=== PATIENT | female | born 1980 | race African-American/Black ===

== ENCOUNTER 2018-03-10 09:24 | Emergency (ER) | payer BC ==
[~2018-03-10] VITALS: Ht 157.5 cm; Wt 106.6 kg
[2018-03-10] MEDS ORDERED: KETOROLAC TROMETHAMINE 30 MG/ML VIAL IV STA (09:34)
[2018-03-10] MEDS ORDERED: SODIUM CHLORIDE 0.9% 1000ML 1,000 ML IV SCH (09:45)
[2018-03-10] MEDS ORDERED: DIPHENHYDRAMINE HCL INJ 50 MG/ML VIAL IV ONE (09:45)
[2018-03-10] MEDS ORDERED: METOCLOPRAMIDE HCL 10 MG/2ML VIAL IV ONE (09:45)
[2018-03-10 10:28] LABS: CLARITY,URINE CLEAR (CLEAR); COLOR,URINE YELLOW (YELLOW)
[2018-03-10 10:29] LABS: BILIRUBIN,URINE NEGATIVE (NEGATIVE); KETONES,URINE NEGATIVE (NEGATIVE); LEUKOCYTE ESTERASE ,URINE NEGATIVE (NEGATIVE); NITRITE,URINE NEGATIVE (NEGATIVE); PROTEIN,URINE DIPSTICK TRACE (NEGATIVE); URINE UROBILINOGEN 0.2 mg/dL (0.2 - 1)
[2018-03-10 10:37] LABS: BACTERIA,URINE FEW /HPF; EPITHELIAL CELLS,URINE FEW /LPF; RBC,URINE 0-5 /HPF (0-5); WBC,URINE (MAN) 0-5 /HPF (0-5)
[2018-03-10 10:38] LABS: MUCUS,URINE FEW (RARE); PREGNANCY TEST, URINE NEGATIVE (NEGATIVE)
--- NOTE | 2018-03-10 12:24 | Diagnostic Imaging Report ---
History: Headache; migraine Comparison studies: None Technique: Axial images were obtained from the skull base to the vertex. Coronal and sagittal reconstructions obtained from the axial data. Dose modulation, iterative reconstruction, and/or weight based adjustment of the mA/kV was utilized to reduce the radiation dose to as low as reasonably achievable. Findings: Scalp/skull: No abnormalities. No fractures, blastic or lytic lesions. Extra-axial spaces: No masses. No fluid collections. Brain sulci: Appropriate for age. Ventricles: Normal in size and configuration. No hydrocephalus. Parenchyma: No abnormal densities. No masses, hemorrhage, acute or chronic cortical vascular insults. Sellar/suprasellar region: No abnormalities Craniocervical junction: Patent foramen magnum. No Chiari one malformation. IMPRESSION: No abnormalities . Signed by: DR Rickie Atkins M.D. on 03/10/2018 12:21 PM
[2018-03-10 12:56] VITALS: BP 118/81
== END 2018-03-10 12:50 | disposition home or self-care (01) ==
LOC: ER 09:24
DX: R51 Headache (principal); R11.0 Nausea; J01.10 Acute frontal sinusitis, unspecified
CPT/HCPCS: 70450; 81001; 81025; 99284; J1200; J1885; J2765; J7030